=== PATIENT | male | born 1935 | race Caucasian/White ===

== ENCOUNTER 2025-02-03 22:40 | Observation (INO) | payer MEDICARE, OTHER, SELFPAY ==
[2025-02-03] VITALS (10 sets, daily range): BP systolic 114–167; BP diastolic 45–86
[2025-02-03 15:39] LABS: % Basophils 0.7 % (0-2); % Eosinophils 1.3 % (0-6); % Immature Granulocytes 0.4 % (0-0.5); % Lymphocytes 20.1 % (20.5-51.1); % Neutrophils 67.5 % (42.2-75.2); Absolute Basophils 0.1 10^3/uL (0-0.2); Absolute Eosinophils 0.1 10^3/uL (0-0.7); Absolute Lymphocytes 1.4 10^3/uL (1.2-3.4); Absolute Monocytes 0.7 10^3/uL (0.1-0.6); Absolute Neutrophils 4.7 10^3/uL (1.4-6.5); Hematocrit 41.5 % (39.0-52.0); Hemoglobin 13.8 g/dL (13.0-18.0); Mean Corp Hgb Conc. 33.3 g/dL (33.0-37.0); Mean Corpuscular Hgb 30.1 pg (27.0-31.0); Mean Corpuscular Volume 90.6 fL (80.0-94.0); Mean Platelet Volume 10.8 fL (7.4-10.4); Nucleated Red Blood Cells % 0 % (-); Platelet Count 152 10^3/uL (130-400); Red Blood Cell Count 4.58 10^6/uL (4.70-6.10); Red Cell Dist. Width 13.7 % (11.5-14.5); White Blood Cell Count 6.9 10^3/uL (4.8-10.8)
[2025-02-03 16:02] LABS: ALT (SGPT) 20 U/L (0-50); AST (SGOT) 25 U/L (17-59); Alkaline Phosphatase 58 U/L (38-126); Blood Urea Nitrogen 32 mg/dl (9-20); Calcium 9.5 mg/dl (8.4-10.2); Carbon Dioxide 25 mmol/L (22-30); Chloride 102 mmol/L (98-107); Glucose 125 mg/dl (70-99); Potassium 4.6 mmol/L (3.5-5.1); Sodium 136 mmol/L (135-145); Total Bilirubin 0.9 mg/dl (0.2-1.3); eGFR 58.17
--- NOTE | 2025-02-03 16:40 | ED.GENMED ---
History of Present Illness
General
Chief Complaint: Weakness
Time Seen by Provider: 02/03/25 16:13
History of Present Illness
History of Present Illness:
89-year-old male with history of Hodgkin's lymphoma now in remission, hypertension presenting to the emergency room with weakness. Patient states that today he noticed difficulty with walking. He states that at first it was pain in both his legs
and pain in his lower back. However the pain is now resolved and then he was having weakness with walking. At first he says that he was having balance problems and had to have a wider based gait. At this time he denies any pain or numbness
tingling. He does state that he feels overall weak. No saddle anesthesia. No urinary incontinence or retention. No spinal injections. No active malignancy. No falls.
Past History
Past History
ED Past Medical History: Cancer (hodgkins lymphoma), HTN and Hypercholesterolemia
Social History
Tobacco: Non-smoker
Alcohol: None
Personal:
Living: with family
Phy Exam
Physical Exam
Physical Exam:
GENERAL: in no acute distress
HEENT: normocephalic, extraocular movements intact, moist oral mucosa
NECK: normal inspection
Back: No midline spinal tenderness
RESPIRATORY: no respiratory distress, clear to auscultation bilaterally
CARDIOVASCULAR: regular rate and rhythm
ABDOMEN/: soft, non-distended, non-tender to palpation, no rebound or guarding
EXTREMITIES: non-tender, no edema/swelling
NEUROLOGIC: alert and oriented x 3, cranial nerves II-XII intact, right upper extremity strength 5/5, left upper extremity strength 5/5, right lower extremity strength 5/5, left lower extremity strength 5/5, normal sensation to light touch, normal
[id number] and [id number], gait not tested formally
SKIN: warm
Course
Orders/Labs/Results
Orders:
Orders
02/03/25 15:14
ECG [Electrocardiogram (*1)] Urgent
Reason for Study: Bradycardia / Tachycardia
EKG- Treatment ONCE
02/03/25 15:30
Complete Blood Count/With Diff Urgent
Comprehensive Metabolic Panel Urgent
02/03/25 16:30
CT Head W/o Iv Contrast Urgent
Comment:
Reason For Exam: weakness, balance issue
Urinalysis Reflex To Culture Urgent
0.9% Sodium Chloride 1000 ml [Nss] 1,000 ml IV BOLUS
Abnormal Lab Results
02/03/25
15:30
RBC 4.58 L 10^6/uL
(4.70-6.10)
MPV 10.8 H fL
(7.4-10.4)
Absolute Monos (auto) 0.7 H 10^3/uL
(0.1-0.6)
Lymphocytes % 20.1 L %
(20.5-51.1)
Monocytes % 10.0 H %
(1.7-9.3)
BUN 32 H mg/dl
(9-20)
Glucose 125 H mg/dl
(70-99)
02/03/25 15:30
02/03/25 15:30
Vital Signs
Initial and Last Documented VS:
Initial Vital Signs
Temp Pulse Resp BP Pulse Ox
97.7 F 41 20 167/66 98
02/03/25 15:11 02/03/25 15:11 02/03/25 15:11 02/03/25 15:11 02/03/25 15:11
Last Documented Vital Signs
Temp Pulse Resp BP Pulse Ox
97.7 F 76 20 130/51 97
02/03/25 15:11 02/03/25 16:30 02/03/25 16:30 02/03/25 16:19 02/03/25 16:30
MDM/Problems Addressed
Differential Diagnosis Includes:
Patient is a 89-year-old male with history of Hodgkin's lymphoma in remission presenting to the emergency department with weakness of both his legs as well as back pain and balance problems that have since resolved. Vitals are unremarkable and exam
shows no strength or sensory deficits. He is not have any focal neurologic deficits. Differential is broad but consists of TIA given the balance problem versus metabolic derangement versus urine infection. I considered cauda equina given
patient's initial complaint of back pain and weakness however patient with no back pain and no obvious weakness on exam. Considered lytic lesion or infection however no spinal tenderness no obvious rashes. Blood work obtained prior to my
evaluation is unremarkable. Will obtain CT scan of the head and urinalysis. Will give IV fluids.
*Critical Care Note
Total Time (30-74mins, 75-104mins- exclusive of procedures): Not Applicable
Update Note
Update Note:
On reevaluation patient resting comfortably. Patient pending CT scan and urinalysis. Patient signed out to oncoming attending pending with the results. Anticipate admission for further evaluation.
ED Attending Note
-
Portions of this chart may have been created with voice recognition software.� Occasional wrong word or��sound alike� substitutions may have occurred due to the inherent limitations of voice recognition software.
Discharge Plan
Departure
Prescriptions:
No Action
aspirin 81 MG tablet,delayed release (DR/EC)
81 mg PO DAILY
loratadine 10 MG tablet
10 mg PO DAILY
fluticasone propionate 1 SPRAY spray,suspension
1 spray intranasal BID
tamsulosin 0.4 MG capsule
0.4 mg PO DAILY Qty: 10 0RF
furosemide 40 mg tablet
40 mg PO DAILY
latanoprost 0.005 % drops
1 drp BOTH EYES HS
atorvastatin 40 mg tablet
40 mg PO HS
carvedilol 12.5 mg tablet
12.5 mg PO BID
acetaminophen 500 mg Tablet
1,000 mg PO HS
lisinopril 10 mg tablet
10 mg PO DAILY
omeprazole 20 mg capsule,delayed release(DR/EC)
20 mg PO DAILY
finasteride 5 mg tablet
5 mg PO DAILY
Mucinex 1,200 mg Tablet Extended Release 12hr
1,200 mg PO HS
cholecalciferol (vitamin D3) [Vitamin D3] 50 mcg (2,000 unit) Tablet
50 mcg PO DAILY
omega 6-ria-izl-fish oil [Fish Oil] 1,000 mg (120 mg-180 mg) Capsule
3 cap PO DAILY
Glucosamine Chondroitin 550-30-1 mg Capsule
1 cap PO BID
cefdinir 300 mg capsule
300 mg PO Q12H 4 Days Qty: 8 0RF
azithromycin 500 mg tablet
500 mg PO DAILY 2 Days Qty: 2 0RF
Referrals:
Colt Arroyo MD [Family Provider] -
Interventions
Interventions:
*Risk Screen - Suicide Last Done: 02/03/25 15:11
*General Assessment Last Done: 02/03/25 15:11
ED- Cardiac Assessment Last Done: 02/03/25 16:29
ED- Neurological Assessment Last Done: 02/03/25 16:29
ED- Pulmonary Assessment Last Done: 02/03/25 16:29
Discharge Date and Time
Print Language: PARAGUAYAN
[2025-02-03] MEDS: NSS 1000 IV (17:24)
[2025-02-03 19:57] LABS: Urine Albumin 3+ (Neg - Trace); Urine Bilirubin Negative (Negative); Urine Character Clear (Clear); Urine Color Yellow; Urine Glucose Negative (Negative); Urine Ketone Negative (Negative); Urine Leukocyte Negative (Negative); Urine Nitrite Negative (Negative); Urine Occult Blood Negative (Negative); Urine Specific Gravity 1.015 (<1.030); Urine Urobilinogen Negative (Neg - 1+)
[2025-02-03 20:07] LABS: Urine Bacteria Few (Negative); Urine Red Blood Cell 0-2 /HPF (0-2); Urine Squamous Cell 0-2 /LPF (Few); Urine White Cell 0-2 /HPF (0-5)
--- NOTE | 2025-02-03 22:29 | HPS.HSE ---
Family Physician
-
Family Physician: Colt Arroyo MD
Chief Complaint
-
Unsteady gait
History of Present Illness
Patient is an 89y M with PMH significant for HFrEF and hypertension who presents to ED complaining of unsteady gait this AM. Patient states that he developed bilateral ankle pain about 1 week ago or so. This pain then improved and he started to
have bilateral knee pain. He has been applying Voltaren gel with improvement in his symptoms. He has some initial stiffness with ambulation - but notes that he is able to 'walk it off' typically. He denies any fevers, chills, falls / injuries,
etc. This AM, patient states that his pain was fairly mild. He was ambulating at home without difficulty prior to breakfast. When he stood after breakfast, he noted that his legs felt 'like rubber'. He was quite unsteady. He typically ambulates
with no assist device; however, he utilized a walker to go to the [facility]. He was evaluated there and referred to the ED.
No recent medication changes. No recent vaccinations, febrile illness, etc.
Medical History
Past Medical History
Past Medical History: Reports Other
Additional Past Medical History:
Hypertension
HFrEF
BPH
Past Surgical History: Reports Other
Additional Past Surgical History:
Sinus Surgery
Social History
Tobacco: Non-smoker
Alcohol: None
Drug: None
Family History
Family History: Not pertinent
Allergies / Home Medications
Allergies reflects when Allergies were last updated in [facility].
Home Medications with original date entered in [facility]
Allergy/Medication List:
Patient is not able to reconcile his medications from memory.
If medication reconciliation has not been performed, why?: Medication List N/A
Review of Systems
-
History Source: Patient
A 12 point ROS was completed and negative except as noted: Yes
Constitutional: Reports Fatigue; Denies Fever or Chills
Respiratory: Denies Cough or Trouble Breathing
Cardiac: Denies Chest Pain or Palpitations
Abdomen/GI: Denies Abdominal Pain, Nausea, Vomiting, Diarrhea, Bloody Stools or Black Stools
: Denies Dysuria, Frequency or Flank Pain
Musculoskeletal: Reports Joint Pain; Denies Muscle Pain or Edema
Neurological: Reports Weakness; Denies Dizzy or Headache
Psych: Denies Depression or Anxiety
Physical Exam
Vital Signs
Vital Signs
Temp Pulse Resp BP Pulse Ox
97.7 F 72 12 116/86 95
02/03/25 15:11 02/03/25 22:15 02/03/25 22:15 02/03/25 22:00 02/03/25 21:45
Physical Exam
General: Other (89y M in no acute distress.)
HEENT: Moist mucous membranes and PERRLA
Respiratory: Clear; No Wheezes, Rales or Rhonchi
Cardiac: S1/S2, Regular Rhythm and Murmur (III/ TYSON)
GI: Soft, Non Tender, Non Distended and Normal Bowel Sounds
Musculoskeletal: No Clubbing, No Cyanosis, No Edema and Other (No significant joint effusions, increased warmth, erythema, etc.)
Neuro: AO x 3 and Other (Strength seems intact and symmetric in the LEs. Sensation intact.)
Laboratory Results
-
02/03/25 15:30
02/03/25 15:30
Laboratory Results
Total Bilirubin 0.9 mg/dl (0.2-1.3) 02/03/25 15:30
AST 25 U/L (17-59) 02/03/25 15:30
ALT 20 U/L (0-50) 02/03/25 15:30
Alkaline Phosphatase 58 U/L (38-126) 02/03/25 15:30
Impression/Plan
-
A/P: Patient is an 89y M with PMH significant for HFrEF and hypertension who presents to ED complaining of unsteady gait since this AM.
Ambulatory Dysfunction
DJD
- Observe overnight for further evaluation and treatment.
- Patient reports gait dysfunction with new / worsening knee pain over the past week or so.
- Continue pain control with Tylenol and topical NSAIDs.
- PT / OT evaluations.
- No neurosensory deficit on exam. Labs, imaging, etc unremarkable.
- Check inflammatory markers for atypical etiology of arthritis pain.
Chronic HFrEF
Benign Hypertension
- Stable. Needs formal med rec in the AM.
- Continue meds including usual diuretic dose.
- Follow I/Os, daily weights, etc.
- Followed by Cardiology at [facility].
BPH
- Stable. Continue meds.
- Bladder scan protocol.
DVT Prophylaxis: Subcut Heparin
Code Status: DNR
--- NOTE | 2025-02-03 22:40 | ED.GENMED ---
History of Present Illness
General
Chief Complaint: Weakness
Time Seen by Provider: 02/03/25 16:13
History of Present Illness
History of Present Illness:
89-year-old male history of hypertension, Hodgkin's lymphoma currently in remission presenting with difficulty walking. Patient states that normally he is able to ambulate without assistance. Patient states that today he started having back pain
and bilateral lower extremity pain, felt weak in the legs. Patient states that he was able to ambulate but with a walker which is unusual for patient. Patient states that he felt unsteady on his feet but denies any dizziness. Patient denies any
headache, numbness, weakness, tingling or incontinence. Patient denies any other symptoms including chest pain, shortness of breath, or abdominal pain. Patient denies urinary symptoms. Patient states that this is never happened before. Patient
states that leg and back pain have resolved, contributes leg pain to arthritis.
Past History
Past History
ED Past Medical History: Cancer (hodgkins lymphoma), HTN and Hypercholesterolemia
Social History
Tobacco: Non-smoker
Alcohol: None
Personal:
Living: with family
Phy Exam
Physical Exam
Physical Exam:
General: Alert, no acute distress
Head: NCAT
Eyes: clear conjunctiva
Neck: supple
Cardiac: regular rate and rhythm, no murmur
Lungs: clear to auscultation bilaterally. No wheezes, rales, or rhonchi. Speaking full unlabored sentences. No respiratory distress.
Abdomen: soft, nondistended nontender. No rebound or guarding.
MSK: no lower extremity edema bilaterally. No deformity
Skin: warm, dry
Neuro: Alert and oriented x3. 5 out of 5 strength bilateral hip/knee/ankle flexion extension. No saddle paresthesias. Able to stand with a wide-based stance which family states is atypical for him, is able to take a few steps with assistance but
appears unsteady on his feet
Course
Orders/Labs/Results
Orders:
Orders
02/03/25 15:14
ECG [Electrocardiogram (*1)] Urgent
Reason for Study: Bradycardia / Tachycardia
EKG- Treatment ONCE
02/03/25 15:30
Complete Blood Count/With Diff Urgent
Comprehensive Metabolic Panel Urgent
02/03/25 16:30
CT Head W/o Iv Contrast Urgent
Comment:
Reason For Exam: weakness, balance issue
0.9% Sodium Chloride 1000 ml [Nss] 1,000 ml IV BOLUS
02/03/25 19:44
Urinalysis Reflex To Culture Urgent
Date Specimen was Collected: 02/03/25
Time Specimen was Collected: 17:25
Urine Microscopic Reflex Cult Urgent
02/03/25 22:25
Admit/Transfer Patient As Directed
Co-Sign Provider:
Level of Care: Observation services
Assign to:: Medical/Surgical
Physician / Group: [facility]
Diagnosis: Ambulatory Dysfunction
Code Status As Directed
Resuscitation Status: Do not resuscitate
Reached after discussion with pt or family/Healthcare POA: Yes
PRN Pain Medication Management As Directed
May give lesser potent ordered pain med per pt: Yes
preference::
Protocol:: Medication orders for pain may be administered in a
manner that supports deferring to patient preference
when the pt is:
- Requesting an ordered lesser potent pain medication.
Least to most potent pain medications are defined
as: acetaminophen < NSAID < tramadol < opioids
(morphine, oxycodone, hydromorphone).
- Requesting a lesser dose of the same medication IF
ORDERED.
- Requesting a less intrusive route of administration
if both routes are prescribed by the provider (PO <
IV).
02/03/25 22:28
DNR Bracelet Application ONCE
Abnormal Lab Results
02/03/25 02/03/25
15:30 19:44
RBC 4.58 L 10^6/uL
(4.70-6.10)
MPV 10.8 H fL
(7.4-10.4)
Absolute Monos (auto) 0.7 H 10^3/uL
(0.1-0.6)
Lymphocytes % 20.1 L %
(20.5-51.1)
Monocytes % 10.0 H %
(1.7-9.3)
BUN 32 H mg/dl
(9-20)
Glucose 125 H mg/dl
(70-99)
Urine Bacteria (Reflex) Few A
(Negative)
Urine Albumin (Reflex) 3+ A
(Neg - Trace)
02/03/25 15:30
02/03/25 15:30
Vital Signs
Initial and Last Documented VS:
Initial Vital Signs
Temp Pulse Resp BP Pulse Ox
97.7 F 41 20 167/66 98
02/03/25 15:11 02/03/25 15:11 02/03/25 15:11 02/03/25 15:11 02/03/25 15:11
Last Documented Vital Signs
Temp Pulse Resp BP Pulse Ox
97.7 F 72 12 116/86 95
02/03/25 15:11 02/03/25 22:15 02/03/25 22:15 02/03/25 22:00 02/03/25 21:45
MDM/Problems Addressed
MDM/Problems Addressed:
Patient received in signout from previous physician. Workup reviewed, UA negative for UTI. Electrolytes within normal limits. White count, hemoglobin within normal limits. CT head unremarkable. Attempted to ambulate patient but appears unsteady
on his feet, states he typically is able to walk around with no assistance. Pt denies any back pain or extremity pain at this time. Discussed with hospitalist for admission
*Critical Care Note
Total Time (30-74mins, 75-104mins- exclusive of procedures): Not Applicable
ED Attending Note
-
Portions of this chart may have been created with voice recognition software.� Occasional wrong word or��sound alike� substitutions may have occurred due to the inherent limitations of voice recognition software.
Discharge Plan
Departure
Patient Disposition: Admit
Date of Disposition: 02/03/25
Time of Disposition: 21:53
Presentation/result/management discussed w/ accepting MD/DO: Hospitalist
Discharge Problem:
Ambulatory dysfunction
Prescriptions:
No Action
aspirin 81 MG tablet,delayed release (DR/EC)
81 mg PO DAILY
loratadine 10 MG tablet
10 mg PO DAILY
fluticasone propionate 1 SPRAY spray,suspension
1 spray intranasal BID
tamsulosin 0.4 MG capsule
0.4 mg PO DAILY Qty: 10 0RF
furosemide 40 mg tablet
40 mg PO DAILY
latanoprost 0.005 % drops
1 drp BOTH EYES HS
atorvastatin 40 mg tablet
40 mg PO HS
carvedilol 12.5 mg tablet
12.5 mg PO BID
acetaminophen 500 mg Tablet
1,000 mg PO HS
lisinopril 10 mg tablet
10 mg PO DAILY
omeprazole 20 mg capsule,delayed release(DR/EC)
20 mg PO DAILY
finasteride 5 mg tablet
5 mg PO DAILY
Mucinex 1,200 mg Tablet Extended Release 12hr
1,200 mg PO HS
cholecalciferol (vitamin D3) [Vitamin D3] 50 mcg (2,000 unit) Tablet
50 mcg PO DAILY
omega 9-ayl-nxn-fish oil [Fish Oil] 1,000 mg (120 mg-180 mg) Capsule
3 cap PO DAILY
Glucosamine Chondroitin 550-30-1 mg Capsule
1 cap PO BID
cefdinir 300 mg capsule
300 mg PO Q12H 4 Days Qty: 8 0RF
azithromycin 500 mg tablet
500 mg PO DAILY 2 Days Qty: 2 0RF
Referrals:
Colt Arroyo MD [Family Provider] -
Interventions
Interventions:
*Risk Screen - Suicide Last Done: 02/03/25 15:11
*General Assessment Last Done: 02/03/25 15:11
ED- Cardiac Assessment Last Done: 02/03/25 16:29
ED- Neurological Assessment Last Done: 02/03/25 16:29
ED- Pulmonary Assessment Last Done: 02/03/25 16:29
Discharge Date and Time
Print Language: GHANAIAN
[2025-02-04] VITALS (8 sets, daily range): BP systolic 100–141; BP diastolic 41–73; PULSE 61–76; O2SAT 97; BMI 24.5
--- NOTE | 2025-02-04 00:15 | PTCARENOTE ---
Pt from ED A+OX3 VSS. Pt oriented to room and POC. Pt does not know home medications, states spouse will bring list in AM. Care is ongoing.
[2025-02-04 00:35] LABS: Creatine Phosphokinase 49 U/L (55-170)
[2025-02-04 01:44] LABS: Erythrocyte Sed Rate 26 mm/hour (0-20)
--- NOTE | 2025-02-04 07:34 | W.PN.HOSP.TC ---
Addendum entered and electronically signed by Raimundo Aguilar MD 02/04/25 16:02:
B 12 levels added
Addendum entered and electronically signed by Raimundo Aguilar MD 02/04/25 15:54:
Seen earlier , late documentation.
I saw and evaluated the patient. I reviewed the resident�s note and agree with findings and plan as documented in the resident�s note except changes in my documentation
89-year-old male with unsteady gait he developed bilateral ankle pain 1 week ago which improved and then had bilateral knee pain and back pain
CVS: S1-S2 normal
Chest: CTA B/L
Abdomen: Soft, NT , Bowel Sounds Present
Extremities: No edema, Normal pulses
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 Good strength . B/l LE.
# Ambulatory dysfunction with pain when he stands up or walks
Neg orthostatic vital signs
CPK levels normal
PT OT evaluation
# Chronic HFrEF- Continue Lasix, Lisinopril, Coreg
# Hypertension- Continue Lisinopril, Coreg
# Hyperlipidemia- Statin
# Enlarged prostate -continue finasteride and Flomax
# History of Hodgkin's lymphoma-in remission
# GERD/hiatal hernia continue PPI
# Diverticulosis
# DVT prophylaxis
# DNR
D/W and daughter at bed side
Original Note:
Today's Communication/Plan
-
Pt/ot
mri Lumbar
Assessment / Plan
Assessment / Plan
89y M with PMH significant for HFrEF, Hodgkin's lymphoma currently in remission and hypertension presented to ED complaining of unsteady gait.
#Ambulatory Dysfunction
#DJD
#weakness
- Observe overnight for further evaluation and treatment.
- Patient reports gait dysfunction with new / worsening knee pain R>L over the past week or so.
- Continue pain control with Tylenol and topical NSAIDs.
- Head Ct unremarkable
- PT / OT evaluations.
- No neurosensory deficit on exam.
- Labs, imaging, UA unremarkable.
- ESR 26, CK 49
- will get Lumbar MRI- jennifer spinal stenosis with neurogenic claudication
- consider b/l LE doppler if pain worsen; low jennifer of dvt
- neuro consult if mri unremarkable
#Chronic HFrEF
#Benign Hypertension
- Stable. Needs formal med rec; pharmacist to rec around noon today
- Continue meds including usual diuretic dose.
- Follow I/Os, daily weights, etc.
- Followed by Cardiology at [facility].
#BPH
- Stable.
- Continue home meds.
- Bladder scan protocol.
#h/o LBBB
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
LEFT AXIS DEVIATION
NON-SPECIFIC INTRA-VENTRICULAR CONDUCTION BLOCK
CANNOT RULE OUT SEPTAL INFARCT , AGE UNDETERMINED
INFERIOR INFARCT , AGE UNDETERMINED
MARKED T WAVE ABNORMALITY CONSIDER ANTEROLATERAL ISCHEMIA
ABNORMAL ECG
#Hx of Hodgkin's Lymphoma
-in remission
DVT Prophylaxis: Subcut Heparin
Code Status: DNR
Anticipated Discharge: Within 24 hours
Subjective/Interval History
-
Date of Service: February 04, 2025
AFVSS. Patient complaining of weakness and pain in multiple joints including bilateral knees, bilateral ankles and lower back.
Objective Data
-
Vital Signs:
Vital Signs
Temp Pulse Resp BP Pulse Ox
98 F 64 16 141/61 98
02/04/25 00:15 02/04/25 00:15 02/04/25 00:15 02/04/25 00:15 02/04/25 00:25
I&O
02/03/25 02/04/25 02/05/25
05:59 06:59 06:59
Output Total
Balance
Review of Systems
-
History Source: Patient
Constitutional: Reports No Symptoms
EENT: Reports No Symptoms Reported
Cardiac: Reports No Symptoms; Denies Chest Pain
Abdomen/GI: Reports No Symptoms; Denies Abdominal Pain
Genitourinary: Reports No Symptoms
Musculoskeletal: Reports Arthralgias
Neuro: Reports Weakness (Generalized)
Physical Exam
-
General: Well Developed, Well Nourished and No Apparent Distress
HEENT: Normocephalic, Atraumatic and Moist Mucous Membranes
Respiratory: Clear to Auscultation
Cardiac: Regular Rhythm and S1/S2
GI: Soft, Nontender and Nondistended
Musculoskeletal: No Clubbing, No Cyanosis and No Edema
Skin: Warm
Neuro: Awake, Alert, Oriented, No Motor Deficits, Central Nerve's Intact, No Sensory Deficits and Other (diminished LE reflexes); Negative Tremors
Psych: Calm
Data Reviewed
-
CT Scan: Report Reviewed by me
Labs: Labs Reviewed by me, Discussed with Physician and Discussed with Patient
[2025-02-04] MEDS: LASIX 40 MG PO (09:42)
[2025-02-04] MEDS: FLOMAX 0.4 MG PO (09:42)
[2025-02-04] MEDS: TYLENOL 1000 MG PO ×3 (09:42→22:48)
[2025-02-04] MEDS: ZESTRIL 10 MG PO (09:42)
[2025-02-04] MEDS: LOW STRENGTH ASPIRIN 81 MG PO (09:45)
[2025-02-04] MEDS: PROSCAR 5 MG PO (09:45)
[2025-02-04] MEDS: HEPARIN 5000 UNITS SC ×2 (09:45→20:34)
[2025-02-04] MEDS: COREG 12.5 MG PO ×2 (09:46→20:34)
[2025-02-04] MEDS: DICLOFENAC 1% TOPICAL GEL 1 GRAM TOPICAL ×2 (09:46→20:44)
--- NOTE | 2025-02-04 13:35 | CM ---
Initial assessment completed with pt at bedside.
Pt is an 89yr old admitted on OBS for ambulatory dysfunction
Pt lives with his in a 1 level condo with an elevator to their floor.
Pt is indep at baseline and drives.
Pt does not use equipment but does have a w/c, rollator, RW, commode, and shower chair from previous needs.
Pt says that he was receiving PT 1xweekly prior to admission through a private PT agency and has no prior experience with VN/SNF.
Pt denies any falls.
PCP; Colt Arroyo
Pharm; [facility]
PLAN; [facility]
[2025-02-04] MEDS: LIPITOR 40 MG PO (16:58)
[2025-02-04 17:34] LABS: Vitamin B12 372 pg/ml (239-931)
[2025-02-05] MEDS: LASIX 40 MG PO (07:50)
[2025-02-05] MEDS: PROSCAR 5 MG PO (07:50)
[2025-02-05] MEDS: HEPARIN 5000 UNITS SC ×2 (07:50→20:47)
[2025-02-05] MEDS: TYLENOL 1000 MG PO ×3 (07:50→22:01)
[2025-02-05] MEDS: LOW STRENGTH ASPIRIN 81 MG PO (07:50)
[2025-02-05] MEDS: FLOMAX 0.4 MG PO (07:50)
[2025-02-05] MEDS: COREG 12.5 MG PO ×2 (07:51→20:48)
[2025-02-05] MEDS: DICLOFENAC 1% TOPICAL GEL 1 GRAM TOPICAL ×2 (07:51→20:48)
[2025-02-05] MEDS: ZESTRIL 10 MG PO (07:51)
[2025-02-05 07:56] LABS: Hemoglobin 12.2 g/dL (13.0-18.0); Mean Corp Hgb Conc. 33.9 g/dL (33.0-37.0); Mean Corpuscular Hgb 30.3 pg (27.0-31.0); Mean Corpuscular Volume 89.6 fL (80.0-94.0); Mean Platelet Volume 11.2 fL (7.4-10.4); Platelet Count 118 10^3/uL (130-400); Red Blood Cell Count 4.02 10^6/uL (4.70-6.10); Red Cell Dist. Width 13.6 % (11.5-14.5); White Blood Cell Count 4.8 10^3/uL (4.8-10.8)
[2025-02-05 08:12] VITALS: BP 153/62
[2025-02-05 08:23] LABS: Blood Urea Nitrogen 24 mg/dl (9-20); Calcium 8.8 mg/dl (8.4-10.2); Carbon Dioxide 24 mmol/L (22-30); Chloride 106 mmol/L (98-107); Estimated Creatinine Clearance 46 ml/min; Glucose 122 mg/dl (70-99); Potassium 3.8 mmol/L (3.5-5.1); Sodium 136 mmol/L (135-145); eGFR > 60.00
[2025-02-05 08:36] LABS: Glycohemoglobin (HgbA1c) 6.5 % (4.0-5.6)
--- NOTE | 2025-02-05 09:51 | W.PN.HOSP.TC ---
Today's Communication/Plan
-
MRI today pending
Assessment / Plan
Assessment / Plan
89y M with PMH significant for HFrEF, Hodgkin's lymphoma currently in remission and hypertension presented to ED complaining of unsteady gait.
#Ambulatory Dysfunction
#DJD
#weakness
- Patient reports gait dysfunction with new / worsening knee pain R>L over the past week or so.
- Continue pain control with Tylenol and topical NSAIDs.
- Head Ct unremarkable. Labs, UA unremarkable. ESR 26, CK 49.
- PT / OT evaluations.
- will get Lumbar MRI- jennifer spinal stenosis with neurogenic claudication
- consider b/l LE doppler if pain worsen; low jennifer of dvt
- neuro consult if mri unremarkable
#Chronic HFrEF
#Benign Hypertension
- Continue home lasix 40mg daily, lisinopril 10mg daily, carvedilol 12.5 mg BID
- Follow I/Os, daily weights, low sodium diet etc.
- Followed by Cardiology at [facility].
#BPH
- Continue home tamsulosin, finasteride
- Bladder scan protocol.
#h/o LBBB
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
LEFT AXIS DEVIATION
NON-SPECIFIC INTRA-VENTRICULAR CONDUCTION BLOCK
CANNOT RULE OUT SEPTAL INFARCT , AGE UNDETERMINED
INFERIOR INFARCT , AGE UNDETERMINED
MARKED T WAVE ABNORMALITY CONSIDER ANTEROLATERAL ISCHEMIA
ABNORMAL ECG
#Hx of Hodgkin's Lymphoma
-in remission, on IVIG monthly-- next dose due next week.
Code status: DNR
VTE ppx: heparin SC q12h
Diet: Low sodium
Dispo planning: Anticipate SNF per PT/OT evals
Anticipated Discharge: 24 - 48 hours
Subjective/Interval History
-
Date of Service: February 05, 2025
No acute events overnight. Has been out of bed with walker, and still reports his legs feel 'wobbly.' Reports pain in bilateral ankles and knees that is worse with ambulation. Denies dizziness, chest pain, shortness of breath, abdominal pain,
nausea, vomiting, diarrhea, constipation. Tolerating PO diet.
Objective Data
-
Labs:
Laboratory Results
02/05/25
07:12
WBC 4.8
Hgb 12.2 L
Hct 36.0 L
Plt Count 118 L D
Sodium 136
Potassium 3.8
Chloride 106
Carbon Dioxide 24
BUN 24 H
Creatinine 1.0
Glucose 122 H
Calcium 8.8
Vital Signs:
Vital Signs
Temp Pulse Resp BP Pulse Ox
98 F 65 18 153/62 98
02/05/25 08:12 02/05/25 08:12 02/05/25 08:12 02/05/25 08:12 02/05/25 08:12
I&O
02/04/25 02/05/25 02/06/25
06:59 06:59 06:59
Intake Total 690 / 690
Output Total 1025 / 1025
Balance -335 / -335
Review of Systems
-
History Source: Patient
All other systems: Reviewed and negative
Physical Exam
-
General: Well Developed, No Apparent Distress, Comfortable and Conversant
HEENT: Normocephalic and Atraumatic
Respiratory: Clear to Auscultation and Non Labored Respirations; Negative Wheezes or Crackles
Cardiac: Regular Rhythm and Murmur (systolic)
GI: Soft, Nontender, Nondistended and Normal Bowel Sounds
Musculoskeletal: No Edema and Normal Gait & Station (with use of walker)
Skin: Warm and Dry
Neuro: Awake, Alert and Oriented
Psych: Calm and Intact Judgement/Insight
Data Reviewed
-
CT Scan: Report Reviewed by me
Labs: Labs Reviewed by me
[2025-02-05 10:00] VITALS: BMI 24.4
--- NOTE | 2025-02-05 14:32 | W.PN.UPDATE ---
Update Note
Progress Note Update
Seen earlier , late documentation.
I saw and evaluated the patient. I reviewed the resident�s note and agree with findings and plan as documented in the resident�s note except changes in my documentation
89-year-old male with unsteady gait . Says he felt his legs were like rubber. Says slightly better, but feels stiff when he walks
CVS: S1-S2 normal
Chest: CTA B/L
Abdomen: Soft, NT , Bowel Sounds Present
Extremities: No edema, Normal pulses
[employer] OPERATOR: Good strength B/L UE, Decreased reflexes in the legs. Good strength , no sensory loss. B/l LE. NO cogwheeling, Gait short steps
# Ambulatory dysfunction with pain when he stands up or walks
Neg orthostatic vital signs
Mild DJD on the MRI
CPK levels normal
PT OT evaluation
Neuro eval requested..
# Chronic HFrEF- Continue Lasix, Lisinopril, Coreg
# Hypertension- Continue Lisinopril, Coreg
# Hyperlipidemia- Statin
# Enlarged prostate -continue finasteride and Flomax
# History of Hodgkin's lymphoma-in remission, gets IVIG every month, due again next wednesday.
# GERD/hiatal hernia continue PPI
# Diverticulosis
# DVT prophylaxis
# DNR
D/W and daughter at bed side
[2025-02-05 15:55] VITALS: BP 142/55
[2025-02-05] MEDS: LIPITOR 40 MG PO (16:32)
--- NOTE | 2025-02-05 18:10 | CON.NEURO ---
Neuro Assessment/Plan
Assessment
89 year old man with ambulatory dysfunction. overall looks pretty good for 89
Exam with some parkinsonism, consistent with Parkinson's disease, which would explain his imbalance and some of the stiffness though there may be an arthritic component as well given the knee/ankle pain.
spoke with patient re: diagnosis and he is interested in trying sinemet
Plan
Sinemet 25/100 TID before meals
Consultation
Order
Date of Consultation: 02/05/25
Requesting Provider: Raimundo Aguilar
Reason for Consult: ambulatory dysfunction
Subjective/Objective
Subjective Data
Date of Service: February 05, 2025
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 began suddenly while he was making the bed. feels his legs are giving out like rubber, but also stiff; associated with bilat knee and ankle pain. No falls.
On further questioning, over the past few months his voice is getting softer, and his movements are slowing down. handwriting is ok. No visual hallucinations, constipation, change in sense of smell. decreased tasted which he attributes to dental
upper plate.
Objective Data
Vital Signs
Temp Pulse Resp BP Pulse Ox
36.4 C 61 18 142/55 100
02/05/25 15:55 02/05/25 15:55 02/05/25 15:55 02/05/25 15:55 02/05/25 15:55
Lab Results
02/05/25 07:12
02/05/25 07:12
Sodium 136 mmol/L (135-145) 02/05/25 07:12
Potassium 3.8 mmol/L (3.5-5.1) 02/05/25 07:12
BUN 24 mg/dl (9-20) H 02/05/25 07:12
Glucose 122 mg/dl (70-99) H 02/05/25 07:12
Calcium 8.8 mg/dl (8.4-10.2) 02/05/25 07:12
Vitamin B12 372 pg/ml (239-931) 02/04/25 00:03
Patient Allergies
guaifenesin [From Deconex] Allergy (Verified 02/03/25 15:12)
Unknown
phenylephrine [From Deconex] Allergy (Verified 02/03/25 15:12)
Unknown
Physical Exam
-
AAOx3, speech clear, language intact
VFF, EOMI, masked fascies
full strength b/l UE/LE, +cogwheel, lead pipe rigidity
+bradykinesia
reciprocal gait with RW, small steps
Medications
-
Active Medications
Generic Name Dose Route Start Last Admin
Trade Name Freq PRN Reason Stop Dose Admin
Acetaminophen 1,000 mg 02/04/25 08:00 02/05/25 16:32
Acetaminophen 500 Mg Tablet PO 03/04/25 07:59 1,000 mg
TID MAURO Administration
Aspirin 81 mg 02/04/25 08:00 02/05/25 07:50
Aspirin 81 Mg Chewable Tablet PO 03/04/25 07:59 81 mg
DAILY MAURO Administration
Atorvastatin Calcium 40 mg 02/04/25 18:00 02/05/25 16:32
Atorvastatin (Lipitor) 40 Mg Tablet PO 03/04/25 17:59 40 mg
QPM MAURO Administration
Carvedilol 12.5 mg 02/04/25 08:00 02/05/25 07:51
Carvedilol 12.5 Mg Tablet PO 03/04/25 07:59 12.5 mg
BID MAURO Administration
Cyanocobalamin 1,000 mcg 02/06/25 08:00
Cyanocobalamin 1,000 Mcg Tablet PO 03/06/25 07:59
DAILY MAURO
Diclofenac Sodium 1 gram 02/04/25 08:00 02/05/25 07:51
Diclofenac 1% Topical Gel 100 Gram Tube TOPICAL 03/04/25 07:59 1 gram
BID MAURO Administration
Protocol
Finasteride 5 mg 02/04/25 08:00 02/05/25 07:50
Finasteride 5 Mg Tablet PO 03/04/25 07:59 5 mg
DAILY MAURO Administration
Furosemide 40 mg 02/04/25 08:00 02/05/25 07:50
Furosemide 40 Mg Tablet PO 03/04/25 07:59 40 mg
DAILY MAURO Administration
Heparin Sodium 5,000 units 02/04/25 08:00 02/05/25 07:50
Heparin 5,000 Units/Ml 1 Ml Vial SC 03/04/25 07:59 5,000 units
Q12 MAURO Administration
Lisinopril 10 mg 02/04/25 08:00 02/05/25 07:51
Lisinopril 10 Mg Tablet PO 03/04/25 07:59 10 mg
DAILY MAURO Administration
Sodium Chloride 0 flush 02/03/25 23:00
Sodium Chloride 0.9% (Flush) Syringe IV 03/03/25 22:59
PER PROTOCOL MAURO
Tamsulosin HCl 0.4 mg 02/04/25 08:00 02/05/25 07:50
Tamsulosin 0.4 Mg Capsule PO 03/04/25 07:59 0.4 mg
DAILY MAURO Administration
Home Medications
�Medication �Instructions �Recorded
aspirin 81 mg tablet,delayed 81 mg PO DAILY Blood Clot 03/27/12
release Prevention/Tx
loratadine 10 mg tablet 10 mg PO DAILY Allergies 03/27/12
fluticasone propionate 50 2 spray intranasal DAILY Allergies 04/23/15
mcg/actuation nasal
spray,suspension
tamsulosin 0.4 mg capsule 0.4 mg PO DAILY #10 caps 04/23/15
acetaminophen 500 mg tablet 1,000 mg PO NOON Pain 05/01/23
atorvastatin 40 mg tablet 40 mg PO HS High Cholesterol 05/01/23
cholecalciferol (vitamin D3) 50 50 mcg PO DAILY Supplement 05/01/23
mcg (2,000 unit) tablet (Vitamin
D3)
finasteride 5 mg tablet 5 mg PO DAILY Urinary Issue 05/01/23
furosemide 40 mg tablet 40 mg PO DAILY Fluid 05/01/23
Retention/Swelling
latanoprost 0.005 % eye drops 1 drp BOTH EYES HS Eye Condition 05/01/23
omeprazole 20 mg capsule,delayed 20 mg PO DAILY Gastrointestinal 05/01/23
release Issue
Balance Of Nature Fruits 1 cap PO TID 02/04/25
Balance Of Nature Vegetables 1 cap PO TID 02/04/25
carvedilol 25 mg tablet 25 mg PO BID 02/04/25
glucosamine sulf dipot 1 cap PO BID 02/04/25
chlr,msm,chond 550 mg-C 30 mg-ariel
1 mg capsule (Glucosamine
Chondroitin)
ibuprofen 200 mg tablet 400 mg PO BID 02/04/25
lisinopril 20 mg tablet 20 mg PO BID 02/04/25
omega 5-ywa-cdi-fish oil 1,200 mg 3 cap PO DAILY 02/04/25
(144 mg-216 mg) capsule (Fish Oil)
[2025-02-05 23:54] VITALS: BP 118/56
[2025-02-06 06:00] VITALS: BMI 23.3
[2025-02-06 07:30] VITALS: BP 140/55
[2025-02-06] MEDS: HEPARIN 5000 UNITS SC (07:58)
[2025-02-06] MEDS: COREG 12.5 MG PO (07:59)
[2025-02-06] MEDS: LOW STRENGTH ASPIRIN 81 MG PO (07:59)
[2025-02-06] MEDS: TYLENOL 1000 MG PO ×2 (07:59→16:23)
[2025-02-06] MEDS: LASIX 40 MG PO (07:59)
[2025-02-06] MEDS: PROSCAR 5 MG PO (07:59)
[2025-02-06] MEDS: DICLOFENAC 1% TOPICAL GEL 1 GRAM TOPICAL (07:59)
[2025-02-06] MEDS: VITAMIN B-12 1000 MCG PO (07:59)
[2025-02-06] MEDS: FLOMAX 0.4 MG PO (07:59)
[2025-02-06] MEDS: ZESTRIL 10 MG PO (08:00)
[2025-02-06] MEDS: SINEMET 25-100 1 TABLET PO ×3 (08:00→16:22)
[2025-02-06 08:43] LABS: Hematocrit 37.8 % (39.0-52.0); Hemoglobin 12.6 g/dL (13.0-18.0); Mean Corp Hgb Conc. 33.3 g/dL (33.0-37.0); Mean Corpuscular Hgb 29.9 pg (27.0-31.0); Mean Corpuscular Volume 89.6 fL (80.0-94.0); Mean Platelet Volume 11.4 fL (7.4-10.4); Platelet Count 115 10^3/uL (130-400); Red Blood Cell Count 4.22 10^6/uL (4.70-6.10); Red Cell Dist. Width 13.3 % (11.5-14.5); White Blood Cell Count 4.3 10^3/uL (4.8-10.8)
[2025-02-06 11:05] VITALS: BP 135/58; PULSE 58
[2025-02-06 11:10] LABS: Blood Urea Nitrogen 22 mg/dl (9-20); Calcium 9.1 mg/dl (8.4-10.2); Carbon Dioxide 24 mmol/L (22-30); Chloride 102 mmol/L (98-107); Estimated Creatinine Clearance 51 ml/min; Glucose 192 mg/dl (70-99); Potassium 4.2 mmol/L (3.5-5.1); Sodium 134 mmol/L (135-145); eGFR > 60.00
--- NOTE | 2025-02-06 11:14 | W.PN.HOSP.TC ---
Addendum entered and electronically signed by Vanita Hill MD, Resident 02/06/25 19:02:
Returned to bedside this evening to review plan with patient and family ( and daughter on speakerphone per patient request). [place] mild lightheadedness within a few minutes of taking next sinemet dose, and this was transient only lasting a few
minutes before resolving spontaneously. Dr. Padilla also spoke with patient again and given improvement in speech and ambulation today, recommended continuing sinemet if side effects are tolerable. Prescription for month supply sent to pharmacy. Stable
for discharge home with VN, previously discussed with CM. Patient and family understanding and in agreement with plan. Daughter plans to milk pickup truck driver pt from hospital this evening.
Addendum entered and electronically signed by Raimundo Aguilar MD 02/06/25 15:11:
I saw and evaluated the patient. I reviewed the resident�s note and agree with findings and plan as documented in the resident�s note.
Patient was sitting in a chair when I saw him earlier today. and son-in-law were at bedside.
Late documentation.
He took 1 dose of Sinemet this morning and felt slightly dizzy. Was seen by PT OT and ambulated in the millan ways he did well in PT.
thinks that his speech is at baseline and no problems with the speech. She also states that 'who does not have some stiffness at this age?'.
Patient has a human resources trainer who comes to the house every week who commented to the that patient does not have any parkinsonian features. is not sure if they should continue with Sinemet.
We discussed about the rationale behind starting it. I also commented that they could stop it if they did not feel it helped him or if they feel uncomfortable taking it. They have not made a decision..
Will discuss with neurology
And discharge planning-need to discuss with case management.
Original Note:
Today's Communication/Plan
-
Continue carbidopa/levodopa per neurology, reassess ambulatory function with PT/OT. Discharge planning, will discuss with CM.
Assessment / Plan
Assessment / Plan
89y M with [facility] significant for HFrEF, Hodgkin's lymphoma currently in remission and hypertension presented to ED complaining of unsteady gait. Patient reports gait dysfunction with new / worsening knee pain R>L over the past week or so. Currently
observation status in hospital.
#Ambulatory Dysfunction, weakness
#DJD
- Continue pain control with Tylenol and topical NSAIDs.
- Head Ct on admission unremarkable. Labs, UA unremarkable. ESR 26, CK 49.
- Orthostatic VS negative. Drop in systolic BP from supine to sitting noted, though the repeat measurement was normal.
- Lumbar MRI showed at multiple levels there was mild degenerative disc disease, spondylosis, minimal disc bulging, no central canal stenosis; Mild-moderate narrowing of some foramen, though only shows slight compression of exiting nerve root at one
level (L4-L5). No acute findings that new onset ambulatory dysfunction.
- Evaluated by neurology, appreciate recs. Noted some findings consistent with Parkinsons Disease, and started trial of carbidopa/levodopa.
- Continue carbidopa/levodopa per neurology, and reassess ambulatory function. Monitor for ongoing side effects.
- Continue PT/OT. Will reassess for discharge home vs SNF pending PT/OT evaluations. Will discuss with CM.
#Chronic HFrEF
#Benign Hypertension
- Continue home lasix 40mg daily, lisinopril 10mg daily, carvedilol 12.5 mg BID
- Follow I/Os, daily weights, low sodium diet etc.
- Followed by Cardiology at [facility].
#BPH
- Continue home tamsulosin, finasteride
- Bladder scan protocol.
#h/o LBBB
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
LEFT AXIS DEVIATION
NON-SPECIFIC INTRA-VENTRICULAR CONDUCTION BLOCK
CANNOT RULE OUT SEPTAL INFARCT , AGE UNDETERMINED
INFERIOR INFARCT , AGE UNDETERMINED
MARKED T WAVE ABNORMALITY CONSIDER ANTEROLATERAL ISCHEMIA
ABNORMAL ECG
#Hx of Hodgkin's Lymphoma
-in remission, on IVIG monthly-- next dose due next week.
Code status: DNR
VTE ppx: heparin SC q12h
Diet: Low sodium
Dispo planning: Discharge home vs SNF pending PT/OT evals
Anticipated Discharge: Within 24 hours
Subjective/Interval History
-
Date of Service: February 06, 2025
No acute events overnight. Was seen by neurology who started trial of carbidopa/levodopa-- with first dose this AM, patient complains of 'fuzzy' feeling in head like lightheadedness, which resolved spontaneously after few minutes. No other
complaints, ROS negative-- denies chest pain, SOB, abd pain, nausea, vomiting, diarrhea, constipation. Tolerating low sodium diet, feels well hydrated. Ambulating with PT.
Objective Data
-
Labs:
Laboratory Results
02/06/25 02/06/25
08:19 10:33
WBC 4.3 L
Hgb 12.6 L
Hct 37.8 L
Plt Count 115 L
Sodium Cancelled 134 L
Potassium Cancelled 4.2
Chloride Cancelled 102
Carbon Dioxide Cancelled 24
BUN Cancelled 22 H
Creatinine Cancelled 0.9
Glucose Cancelled 192 H
Calcium Cancelled 9.1
Vital Signs:
Vital Signs
Temp Pulse Resp BP Pulse Ox
98.4 F 63 16 140/55 97
02/06/25 07:30 02/06/25 07:30 02/06/25 07:30 02/06/25 07:30 02/06/25 07:30
I&O
02/05/25 02/06/25 02/07/25
06:59 06:59 06:59
Intake Total 690 / 690 1080 / 1080
Output Total 1025 / 1025 525 / 525
Balance -335 / -335 555 / 555
Review of Systems
-
History Source: Patient
All other systems: Reviewed and negative
Physical Exam
-
General: Well Developed, No Apparent Distress, Comfortable and Conversant
HEENT: Normocephalic and Atraumatic
Respiratory: Clear to Auscultation and Non Labored Respirations; Negative Wheezes or Crackles
Cardiac: Regular Rhythm and S1/S2
GI: Soft, Nontender, Nondistended and Normal Bowel Sounds
Musculoskeletal: No Edema
Skin: Warm and Dry
Neuro: Awake, Alert and Oriented
Psych: Calm and Intact Judgement/Insight
Data Reviewed
-
CT Scan: Report Reviewed by me
MRI: Report Reviewed by me
Labs: Labs Reviewed by me
[2025-02-06 15:42] VITALS: BP 145/64
[2025-02-06] MEDS: LIPITOR 40 MG PO (16:22)
--- NOTE | 2025-02-06 16:24 | CM ---
Per physician resident, patient can d/c today w/ home care. [facility] accepted for services. '
CM spoke w/ patient's daughter, Marilyn, to inform of d/c today. Per Marilyn, she does not feel comfortable w/ patient d/c today as there is no support at home. Patient resides w/ but patient takes care of and is limited due to weakness
and not being at his PLOF. Marilyn stated that her [id number] has taken off from work tomorrow to be able to be at patient's home, as well as transport him home tomorrow.
CM offered [facility] van transport home, Marilyn shared she is not comfortable w/ patient going home via van to his who is not in good condition herself. Marilyn asked if physician or physician resident can give her a call regarding patient's dopamine
dose. CM made physician aware of daughter wanting a call and safety concerns if d/c today
Plan: Home w/ [facility]
[2025-02-06 19:40] VITALS: BP 152/68
--- NOTE | 2025-02-06 19:50 | W.PN.NEURO.1 ---
Today's Communication / Plan
-
ok to d/c home
Neuro Assessment/Plan
Assessment
89 year old man with ambulatory dysfunction. overall looks pretty good for 89
Exam with some parkinsonism, consistent with Parkinson's disease, which would explain his imbalance and some of the stiffness though there may be an arthritic component as well given the knee/ankle pain.
spoke with patient re: diagnosis, he is not noticing much difference though exam does appear a little better, particularly his voice
Plan
Sinemet 25/100 TID before meals,
advised trying it a few more days at home
Subjective/Objective
Subjective Data
Date of Service: February 06, 2025
dizziness lasting ~5 mins after taking Sinemet. not noticed much difference.
worked with physical therapy and ambulated well
Objective Data
Vital Signs
Temp Pulse Resp BP Pulse Ox
36.4 C 58 18 152/68 98
02/06/25 19:40 02/06/25 19:40 02/06/25 19:40 02/06/25 19:40 02/06/25 19:40
Lab Results
02/06/25 08:19
02/06/25 10:33
Sodium 134 mmol/L (135-145) L 02/06/25 10:33
Potassium 4.2 mmol/L (3.5-5.1) 02/06/25 10:33
BUN 22 mg/dl (9-20) H 02/06/25 10:33
Glucose 192 mg/dl (70-99) H 02/06/25 10:33
Calcium 9.1 mg/dl (8.4-10.2) 02/06/25 10:33
Vitamin B12 372 pg/ml (239-931) 02/04/25 00:03
Patient Allergies
guaifenesin [From Deconex] Allergy (Verified 02/03/25 15:12)
Unknown
phenylephrine [From Deconex] Allergy (Verified 02/03/25 15:12)
Unknown
Physical Exam
-
AAOx3, speech clear, language intact
VFF, EOMI, masked fascies
full strength b/l UE/LE, +cogwheel, lead pipe rigidity
+bradykinesia
reciprocal gait with RW, small steps
--- NOTE | 2025-02-06 20:14 | W.DCSUMMARY ---
Addendum entered and electronically signed by Raimundo Aguilar MD 02/07/25 11:55:
Read, reviewed, and agree. See same day progress note for additional details. Time spent coordinating care, DC planning, review of DC plan of care with resident, transition of care, review of records in EMR, med rec, consults, notes, d/w
consultants, nursing, family, and CM mins
Original Note:
Discharge Summary
Discharge Data
Date of Admission: 02/03/25
Date of Discharge: 02/06/25
-
Pending Results: No
Hospital Course
Discharging Physician : Dr. Hill/Dr. Aguilar
Disposition : Home with home health
Primary care physician : Ann Miller
Principal Discharge diagnosis : Ambulatory dysfunction, concern for parkinsons disease, degenerative disc disease
Chronic Discharge diagnosis : Osteoarthritis, chronic heart failure reduced ejection fraction, hypertension, benign prostatic hypertrophy, left bundle branch block, history of hodgkins lymphoma, hyperlipidemia, gastroesophageal reflux disease,
hiatal hernia, diverticulosis
Hospital Course : Presented to ED for difficulty with ambulation due to unsteadiness, stiffness. Also reported bilateral ankle and knee pain, as well as back pain. His pain was controlled with tylenol and topical NSAIDs. Head CT and labs on
admission were unremarkable, including urinalysis, ESR, CK. Lumbar MRI revealed chronic degenerative disc disease and minor narrowing of some foramen (results below). Neurology was consulted and started carbidopa/levodopa for symptoms consistent
with parkinsons disease. Neurology and physical therapy both noted improvement in symptoms following day. His other chronic conditions were stable throughout hospitalization and no changes were made. On day of discharge, he was stable. He was
discharged home with home health and physical therapy.
Important imaging findings :
Head CT 02/03/25
FINDINGS:
The ventricles are normal in size, configuration, and position for age. There is no intra- or extra-axial mass, hemorrhage, or fluid collection. No areas of abnormal mass effect or attenuation are noted. There is moderate subcortical, deep, and
periventricular white matter low-attenuation, compatible with changes of chronic small vessel ischemic disease. Severe left maxillary sinus mucosal thickening, partially visualized. No depressed calvarial fracture.
IMPRESSION:
No acute intracranial abnormality noted.
Lumbar spine MRI 02/05/25
FINDINGS: MRI of the lumbar spine is performed, images obtained prior to and following intravenous administration of gadolinium-based contrast agent.
Mild degenerative signal change involving the inferior sacroiliac joints, right slightly greater than left. Minimal dextroconvex scoliosis centered in the upper lumbar spine.
Normal appearance of the lower spinal cord. Conus medullaris appears within normal limits, located at the superior L1 level.
At T12-L1, mild disc desiccation and minimal anterior spondylosis. No evidence of disc protrusion or significant disc bulge. No significant foraminal narrowing.
At L1-2, mild disc desiccation and minimal anterior spondylosis. No evidence of disc protrusion or significant disc bulge. No significant foraminal narrowing.
At L2-3, mild degenerative disc disease with anterior spondylosis and mild bilateral lateral spondylosis. No evidence of disc protrusion or significant disc bulge. Mild facet degenerative change minimally compressing the posterolateral aspect of the
thecal sac. There is no significant overall central canal stenosis or lateral recess stenosis. The neural foramina are not significantly narrowed bilaterally.
At L3-4, mild degenerative disc disease including anterior spondylosis. Mild broad-based posterior disc bulge with mild bilateral facet degenerative change and hypertrophy ligamentum flavum. There is mild trefoil compression of the thecal sac, with
no significant overall central canal stenosis or lateral recess stenosis. The neural foramina are minimally narrowed bilaterally with no evidence for compression of the exiting nerve roots.
At L4-5, mild degenerative disc disease with anterior spondylosis and mild bilateral lateral spondylosis. Minimal broad-based posterior disc bulge with mild facet degenerative change and hypertrophy ligamentum flavum. Mild trefoil compression of the
thecal sac. No significant overall central canal stenosis or lateral recess stenosis. The left foramen is mildly to moderately narrowed, and likely slightly compresses the peripheral margin of the exiting nerve root. The right foramen is mildly
narrowed, probably not significantly compressing the exiting nerve root.
At L5-S1, mild degenerative disc disease with anterior spondylosis. Minimal posterior disc bulge with mild bilateral facet degenerative change. Minimal compression of the anterior thecal sac. No significant overall central canal stenosis or lateral
recess stenosis. The left foramen is minimally narrowed. The right foramen is also minimally narrowed.
Evidence for atherosclerotic disease of the abdominal aorta with no significant dilation. No gross evidence for pelvicalyceal dilation of either kidney.
Marrow signal intensity appears within normal limits. There is no evidence for fracture and no evidence for neoplastic disease.
No focal area of abnormal enhancement is identified.
IMPRESSION: No evidence for fracture. There is no significant marrow signal intensity abnormality, with no findings to suggest neoplastic disease of the marrow.
Mild degenerative changes of the lumbar spine, especially given the patient's age of 89 years. See above narrative for detailed findings at each level.
Discharge Plan
-
Patient Disposition: Home with Home Care
Discharge Diagnosis/Procedures: Ambulatory dysfunction
Concern for Parkinsons Disease
Chronic heart failure with reduced ejection fraction
Hypertension
History of Hodgkins lymphoma in remission
Condition: Good
Diet: 2 Gram Sodium
Activity: With assistance, As tolerated and With Walker
Driving Restrictions: No driving
Bathing Restrictions: OK to Shower
Other Services: VN, PT and OT
Specialty Instructions: Weigh Daily- Call MD for wt gain/loss 3 lbs overnight/5 lbs in 1 week
Instructions: Preventing falls in adults, Low-sodium diet, BLOOD PRESSURE, *PCP/Other Freight Adjuster Heart Failure Instructions
Referrals:
Matthew Padilla MD [Active] - As needed (Call the Neurology office to schedule follow up appointment as needed)
Colt Arroyo MD [Family Provider] - in less than 1 week (Call your Primary Care Provider to schedule follow up appointment within 1 week of hospital discharge.)
Additional Discharge Medication Instructions: New medications:
- Take 1 tablet of carbidopa-levodopa before meals, three times per day. Call your Primary Care Provider or Neurologist if you have questions about this medication or need refills.
Continue taking your other medications as you were before coming to the hospital.
You can continue to use tylenol and topical gels to help with your knee pain.
Prescriptions:
New
carbidopa-levodopa 25-100 mg Tablet
1 tab PO AC 30 Days Qty: 90 0RF
Continued
aspirin 81 MG tablet,delayed release (DR/EC)
81 mg PO DAILY
loratadine 10 MG tablet
10 mg PO DAILY
fluticasone propionate 1 SPRAY spray,suspension
2 spray intranasal DAILY
furosemide 40 mg tablet
40 mg PO DAILY
latanoprost 0.005 % drops
1 drp BOTH EYES HS
atorvastatin 40 mg tablet
40 mg PO HS
acetaminophen 500 mg Tablet
1,000 mg PO NOON
omeprazole 20 mg capsule,delayed release(DR/EC)
20 mg PO DAILY
finasteride 5 mg tablet
5 mg PO DAILY
cholecalciferol (vitamin D3) [Vitamin D3] 50 mcg (2,000 unit) Tablet
50 mcg PO DAILY
carvedilol 25 mg Tablet
25 mg PO BID Qty: 0 0RF
lisinopril 20 mg Tablet
20 mg PO BID Qty: 0 0RF
tamsulosin 0.4 MG capsule
0.4 mg PO DAILY Qty: 10 0RF
ibuprofen 200 mg Tablet
400 mg PO BID Qty: 0 0RF
omega 0-dmh-ixe-fish oil [Fish Oil] 1,200 (144-216) mg Capsule
3 cap PO DAILY Qty: 0 0RF
Glucosamine Chondroitin 550-30-1 mg Capsule
1 cap PO BID Qty: 0 0RF
Balance Of Nature Fruits
1 cap PO TID Qty: 0 0RF
Balance Of Nature Vegetables
1 cap PO TID Qty: 0 0RF
Discharge Orders:
Discharge Patient (As Directed); Ordered 02/06/25
Ordered By: Vanita Hill
Discharge Date and Time
Discharge Date/Time: 02/06/25 19:46
Print Language: DJIBOUTIAN
== END 2025-02-06 19:46 | disposition home health service (06) ==
LOC: 4 EAST ACU 22:40
PROVIDERS: Emergency Medicine; Student in an Organized Health Care Education/Training Program; ADMITTING PHYSICIAN Hospitalist; ATTENDING PHYSICIAN Hospitalist; CONSULT PHYSICIAN Psychiatry & Neurology Clinical Neurophysiology; EMERGENCY PHYSICIAN Emergency Medicine; FAMILY PHYSICIAN Family Medicine
DX: M19.90 Unspecified osteoarthritis, unspecified site (principal); R53.1 Weakness; Z85.71 Personal history of Hodgkin lymphoma; I11.0 Hypertensive heart disease with heart failure; R00.1 Bradycardia, unspecified; R00.0 Tachycardia, unspecified; M25.561 Pain in right knee; M25.562 Pain in left knee; M25.571 Pain in right ankle and joints of right foot; M25.572 Pain in left ankle and joints of left foot; R26.2 Difficulty in walking, not elsewhere classified; I50.22 Chronic systolic (congestive) heart failure; N40.0 Benign prostatic hyperplasia without lower urinary tract symptoms; Z66 Do not resuscitate; E78.00 Pure hypercholesterolemia, unspecified; K21.9 Gastro-esophageal reflux disease without esophagitis; K44.9 Diaphragmatic hernia without obstruction or gangrene; K57.90 Diverticulosis of intestine, part unspecified, without perforation or abscess without bleeding; R42 Dizziness and giddiness; G20.A1 Parkinson's disease without dyskinesia, without mention of fluctuations; M47.816 Spondylosis without myelopathy or radiculopathy, lumbar region; I44.0 Atrioventricular block, first degree; I44.7 Left bundle-branch block, unspecified; M48.062 Spinal stenosis, lumbar region with neurogenic claudication; M51.369 Other intervertebral disc degeneration, lumbar region without mention of lumbar back pain or lower extremity pain; Z01.810 Encounter for preprocedural cardiovascular examination; Z79.899 Other long term (current) drug therapy
CPT/HCPCS: 70450; 72158; 80048; 80053; 81003; 81015; 82550; 82607; 83036; 85025; 85027; 85652; 93005; 96360; 97162; 97166; 97530; 99285; A9575; G0378

== ENCOUNTER 2025-05-30 04:04 | Inpatient (IN) | payer MEDICARE, OTHER, SELFPAY ==
[2025-05-29 23:41] VITALS: BMI 26.1
[2025-05-30] VITALS (10 sets, daily range): BP systolic 102–139; BP diastolic 45–63; PULSE 76; O2SAT 97; BMI 25.6
[2025-05-30 00:24] LABS: ALT (SGPT) 17 U/L (0-50); AST (SGOT) 27 U/L (17-59); Albumin 4.3 g/dl (3.5-5.0); Alkaline Phosphatase 55 U/L (38-126); Blood Urea Nitrogen 31 mg/dl (9-20); COVID-19 Antigen Positive (Negative); Calcium 9.1 mg/dl (8.4-10.2); Carbon Dioxide 18 mmol/L (22-30); Chloride 108 mmol/L (98-107); Estimated Creatinine Clearance 42 ml/min; Glucose 182 mg/dl (70-99); Potassium 3.6 mmol/L (3.5-5.1); Sodium 139 mmol/L (135-145); Total Protein 6.7 g/dl (6.3-8.2); eGFR > 60.00
[2025-05-30] MEDS: NSS 1000 IV ×3 (00:30→17:30)
[2025-05-30 00:38] LABS: Hematocrit 38.0 % (39.0-52.0); Hemoglobin 12.6 g/dL (13.0-18.0); Mean Corp Hgb Conc. 33.2 g/dL (33.0-37.0); Mean Corpuscular Volume 90.5 fL (80.0-94.0); Nucleated Red Blood Cells % 0 % (-); Platelet Count 146 10^3/uL (130-400); Red Cell Dist. Width 13.6 % (11.5-14.5)
--- NOTE | 2025-05-30 01:34 | ED.GENMED ---
History of Present Illness
General
Chief Complaint: Weakness
Source: patient and ambulance crew
Exam Limitations: clinical condition
Time Seen by Provider: 05/30/25 00:03
Nursing documentation reviewed up to this point in time: agreed with
History of Present Illness
History of Present Illness:
Note:
CHIEF COMPLAINT(S)
Weakness and inability to function, with a history of recent falls.
HISTORY OF PRESENT ILLNESS
The patient is an 89-year-old male with a confirmed diagnosis of COVID-19, presenting with significant weakness and an inability to function effectively. He reports feeling weak since Wednesday and has experienced difficulties in ambulation and getting
out of bed. The patient mentions multiple falls; specifically, he was unable to get into bed and subsequently fell to the floor. [facility] and does not live in a halfway. The patient denies chest pain,
shortness of breath, abdominal pain, leg swelling, or headache.
PHYSICAL EXAM
- Respiratory: Room air, no shortness of breath.
- Cardiovascular: Blood pressure recorded at 129/52 mmHg.
- General: Vital signs reviewed, patient appears weak.
PROBLEM LIST
Acute:
- COVID-19 infection
- Significant weakness
- Recent falls
PLAN
The patient will be admitted for further management and monitoring of his condition. Given that he lives alone and is weak and nearly fell.
DIFFERENTIAL DIAGNOSIS
The Differential Diagnosis includes, in no particular order and is not limited to:
COVID-19 related weakness
Dehydration
Electrolyte imbalance
Medication side effects
Acute infection other than COVID-19
Anemia
Postural hypotension
Orthostatic hypotension
Disposition:
SUMMARY OF ENCOUNTER
The patient, an 89-year-old male with a recent COVID-19 diagnosis, presented to the emergency department with significant weakness and a recent fall. He was unable to get into bed and lowered himself to the ground to prevent a fall. Emergency
services were called. He lives at home with his , who also has COVID-19 and is unable to care for him currently. The patient requires hospitalization for continued fluid hydration and observation due to weakness associated with the COVID-19
infection.
DISPOSITION
Admit
ASSESSMENT
The patient presents with significant weakness consistent with COVID-19 infection, exacerbated by his recent falls and inability to care for himself. Given his age and the potential risks associated with dehydration and further falls, inpatient
management is necessary.
PLAN
The patient will be admitted for further management, including continued monitoring and fluid hydration.
DIAGNOSIS
COVID-19 infection (U07.1)
Weakness (R53.1)
Fall (W19.XXXA)
Past History
Past History
ED Past Medical History: Cancer (hodgkins lymphoma), HTN and Hypercholesterolemia
Social History
Tobacco: Non-smoker
Alcohol: None
Personal:
Living: with family
Review of Systems
Review of Systems
Allergies reviewed?: Yes
All Other Systems: ROS reviewed and negative except as documented in HPI and ROS
Constitutional: Reports fatigue and sleep disturbance
Respiratory: Reports no symptoms
Cardiac: Reports no symptoms
ABD/GI: Reports no symptoms
: Reports no symptoms
Musculoskeletal: Reports no symptoms
Skin: Reports no symptoms
Neurological: Reports weakness
Hematologic/Lymphatic: Reports no symptoms
Psychiatric: Reports anxiety
Phy Exam
General Physical Exam
General Presentation: moderate distress
General age: appears stated age
General Skin: warm and pale
General Habitus: elderly and frail
General Mental: alert
General Hydration: dry mucous membranes
Cardiovascular Exam
Cardiovascular Exam: tachycardia
Course
Orders/Labs/Results
Orders:
Orders
05/29/25 23:51
COVID-19 Antigen Urgent
Source: Nasal Swab
Complete Blood Count/With Diff Urgent
Comprehensive Metabolic Panel Urgent
05/30/25 00:22
0.9% Sodium Chloride 1000 ml [Nss] 1,000 ml IV BOLUS
05/30/25 00:31
Lactic Acid Q4H
Comment: CANCEL 2nd LACTIC ACID IF 1st LACTIC ACID IS LESS THAN 2
Abnormal Lab Results
05/30/25
00:03
RBC 4.20 L 10^6/uL
(4.70-6.10)
Hgb 12.6 L g/dL
(13.0-18.0)
Hct 38.0 L %
(39.0-52.0)
MPV 11.2 H fL
(7.4-10.4)
Absolute Neuts (auto) 7.7 H 10^3/uL
(1.4-6.5)
Absolute Lymphs (auto) 0.7 L 10^3/uL
(1.2-3.4)
Neutrophils % 85.1 H %
(42.2-75.2)
Lymphocytes % 7.5 L %
(20.5-51.1)
Chloride 108 H mmol/L
(98-107)
Carbon Dioxide 18 L mmol/L
(22-30)
BUN 31 H mg/dl
(9-20)
Glucose 182 H mg/dl
(70-99)
SARS-CoV-2 Antigen Positive A
(Negative)
05/30/25 00:03
05/30/25 00:03
Vital Signs
Initial and Last Documented VS:
Initial Vital Signs
Pulse
83
05/29/25 23:41
Last Documented Vital Signs
Pulse Resp BP Pulse Ox
81 29 132/45 94
05/30/25 01:20 05/30/25 01:20 05/30/25 01:20 05/29/25 23:52
*Pulse Oximetry
SaO2: 94
Nasal Cannula flow liters per minute: 2
Oxygen Mode of Delivery: Room air
Patient hypoxic: yes (Initially patient was 89% on room air. At rest he became 94% on room air)
*Critical Care Note
Total Time (30-74mins, 75-104mins- exclusive of procedures): Not Applicable
ED Attending Note
-
Portions of this chart may have been created with voice recognition software.� Occasional wrong word or��sound alike� substitutions may have occurred due to the inherent limitations of voice recognition software.
Discharge Plan
Departure
Patient Disposition: Admit
Date of Disposition: 05/30/25
Time of Disposition: 01:36
Admit to: Telemetry
Presentation/result/management discussed w/ accepting MD/DO: Hospitalist
Covid-19: Confirmed COVID-19
Discharge Problem:
COVID-19, Acute dehydration, Weakness, Falls
Prescriptions:
No Action
aspirin 81 MG tablet,delayed release (DR/EC)
81 mg PO DAILY
loratadine 10 MG tablet
10 mg PO DAILY
fluticasone propionate 1 SPRAY spray,suspension
2 spray intranasal DAILY
furosemide 40 mg tablet
40 mg PO DAILY
latanoprost 0.005 % drops
1 drp BOTH EYES HS
atorvastatin 40 mg tablet
40 mg PO HS
acetaminophen 500 mg Tablet
1,000 mg PO NOON
omeprazole 20 mg capsule,delayed release(DR/EC)
20 mg PO DAILY
finasteride 5 mg tablet
5 mg PO DAILY
cholecalciferol (vitamin D3) [Vitamin D3] 50 mcg (2,000 unit) Tablet
50 mcg PO DAILY
carbidopa-levodopa 25-100 mg Tablet
1 tab PO AC 30 Days Qty: 90 0RF
carvedilol 25 mg Tablet
25 mg PO BID Qty: 0 0RF
lisinopril 20 mg Tablet
20 mg PO BID Qty: 0 0RF
tamsulosin 0.4 MG capsule
0.4 mg PO DAILY Qty: 10 0RF
ibuprofen 200 mg Tablet
400 mg PO BID Qty: 0 0RF
omega 7-aeg-jdk-fish oil [Fish Oil] 1,200 (144-216) mg Capsule
3 cap PO DAILY Qty: 0 0RF
Glucosamine Chondroitin 550-30-1 mg Capsule
1 cap PO BID Qty: 0 0RF
Balance Of Nature Fruits
1 cap PO TID Qty: 0 0RF
Balance Of Nature Vegetables
1 cap PO TID Qty: 0 0RF
Referrals:
UNKNOWN - PT DOES,NOT KNOW [Family Provider]
Interventions
Interventions:
*Risk Screen - Suicide Last Done: 05/29/25 23:48
*General Assessment Last Done: 05/29/25 23:46
*Neglect/Abuse Screening Last Done: 05/29/25 23:48
*ED- Fall Risk Assessment Last Done: 05/29/25 23:46
*ED COVID-19 Vaccine History Last Done: 05/29/25 23:46
ED- Cardiac Assessment Last Done: 05/30/25 00:23
ED- Neurological Assessment Last Done: 05/30/25 00:23
ED- Pulmonary Assessment Last Done: 05/30/25 00:23
Discharge Date and Time
Print Language: SINHALA
[2025-05-30] MEDS: TYLENOL 650 MG PO (02:56)
--- NOTE | 2025-05-30 03:43 | HPS.HSE ---
Family Physician
-
Family Physician: NOT KNOW UNKNOWN - PT DOES
Chief Complaint
-
Weakness
History of Present Illness
Patient is an 89y M with PMH significant for hypertension, CHF and ? Parkinsonism who presents to ED complaining of weakness, falls and cough. His was recently admitted to for COVID-19 infection. Patient reportedly with multiple falls
in the past few days (though he denies this to me). He complains of cough, malaise, poor PO intake, etc. He states that he has been weak and dizzy. He denies any pain at present. Denies N/V/D.
Patient was last admitted in January of this year due to weakness / falls. He was started on Sinemet at that time for suspected Parkinsonism. He states that he took this for about a week and then discontinued it.
Medical History
Past Medical History
Past Medical History: Reports Other
Additional Past Medical History:
Hypertension
HFrEF
BPH
? Parkinson's Disease
Past Surgical History: Reports Other
Additional Past Surgical History:
Sinus Surgery
Social History
Tobacco: Non-smoker
Alcohol: None
Drug: None
Family History
Family History: Not pertinent
Allergies / Home Medications
Allergies reflects when Allergies were last updated in [facility].
Home Medications with original date entered in [facility]
Allergy/Medication List:
Allergies
Allergy/AdvReac Type Severity Reaction Status Date / Time
guaifenesin (From Deconex) Allergy Unknown Verified 02/03/25 15:12
phenylephrine (From Deconex) Allergy Unknown Verified 02/03/25 15:12
Home Medications
aspirin 81 mg tablet,delayed release 81 mg PO DAILY Blood Clot Prevention/Tx 03/27/12
loratadine 10 mg tablet 10 mg PO DAILY Allergies 03/27/12
fluticasone propionate 50 mcg/actuation nasal spray,suspension 2 spray intranasal DAILY Allergies 04/23/15
acetaminophen 500 mg tablet 1,000 mg PO NOON Pain 05/01/23
atorvastatin 40 mg tablet 40 mg PO HS High Cholesterol 05/01/23
cholecalciferol (vitamin D3) 50 mcg (2,000 unit) tablet (Vitamin D3) 50 mcg PO DAILY Supplement 05/01/23
finasteride 5 mg tablet 5 mg PO DAILY Urinary Issue 05/01/23
furosemide 40 mg tablet 40 mg PO DAILY Fluid Retention/Swelling 05/01/23
latanoprost 0.005 % eye drops 1 drp BOTH EYES HS Eye Condition 05/01/23
omeprazole 20 mg capsule,delayed release 20 mg PO DAILY Gastrointestinal Issue 05/01/23
Balance Of Nature Fruits 1 cap PO TID Supplement ##0 02/06/25
Balance Of Nature Vegetables 1 cap PO TID Supplement ##0 02/06/25
carvedilol 25 mg tablet 25 mg PO BID Heart disease/condition #0 tabs 02/06/25
glucosamine sulf dipot chlr,msm,chond 550 mg-C 30 mg-ariel 1 mg capsule (Glucosamine Chondroitin) 1 cap PO BID Supplement #0 caps 02/06/25
ibuprofen 200 mg tablet 400 mg (2 x 200 mg) PO BID Pain #0 tabs 02/06/25
lisinopril 20 mg tablet 20 mg PO BID Blood pressure #0 tabs 02/06/25
omega 8-wjo-kzl-fish oil 1,200 mg (144 mg-216 mg) capsule (Fish Oil) 3 cap PO DAILY Supplement #0 caps 02/06/25
tamsulosin 0.4 mg capsule 0.4 mg PO DAILY Urinary issue #10 caps 02/06/25
Review of Systems
-
History Source: Patient
A 12 point ROS was completed and negative except as noted: Yes
Constitutional: Reports Fatigue; Denies Fever or Chills
EENT: Denies Sore Throat
Respiratory: Reports Cough; Denies Trouble Breathing
Cardiac: Denies Chest Pain or Palpitations
Abdomen/GI: Denies Abdominal Pain, Nausea, Vomiting or Diarrhea
: Denies Dysuria, Frequency or Flank Pain
Musculoskeletal: Denies Joint Pain or Edema
Neurological: Reports Dizzy and Weakness; Denies Headache
Psych: Denies Depression or Anxiety
Physical Exam
Vital Signs
Vital Signs
Temp Pulse Resp BP Pulse Ox
100.1 F 81 29 132/45 94
05/30/25 02:34 05/30/25 01:20 05/30/25 01:20 05/30/25 01:20 05/30/25 01:38
Physical Exam
General: Other (Frail appearing 89y M in no acute distress.)
HEENT: Other (Dry MM. Neck supple.)
Respiratory: Other (Few scattered rales. No wheezes / rhonchi.)
Cardiac: S1/S2, Regular Rhythm and Murmur (III/ TYSON)
GI: Soft, Non Tender, Non Distended and Normal Bowel Sounds
Musculoskeletal: No Clubbing, No Cyanosis and No Edema
Neuro: AO x 3
Laboratory Results
-
05/30/25 00:03
05/30/25 00:03
Laboratory Results
Lactic Acid Cancelled 05/30/25 04:30
Total Bilirubin 1.2 mg/dl (0.2-1.3) 05/30/25 00:03
AST 27 U/L (17-59) 05/30/25 00:03
ALT 17 U/L (0-50) 05/30/25 00:03
Alkaline Phosphatase 55 U/L (38-126) 05/30/25 00:03
Impression/Plan
-
A/P: Patient is an 89y M with PMH significant for hypertension and CHF who presents to ED complaining of weakness and unsteady gait with recent diagnosis of COVID.
COVID-19 Infection
Acute Hypoxemic Respiratory Insufficiency secondary to the above
- Admit for further evaluation and treatment.
- Positive known sick contacts. Cough. SpO2 in the ED < 90% on room air / requiring supplemental O2.
- Begin daily dexamethasone for now.
- Follow proper precautions.
- Follow for clinical improvement.
- Consider Remdesivir, etc if persistent / worsening hypoxemia, etc.
Ambulatory Dysfunction
- Likely exacerbated by acute illness, but ? underlying Parkinsonism as previously suspected.
- Patient not interested in repeat trial of Sinemet.
- Treat acute process as noted above.
- PT eval / supportive care.
- Monitor for any improvement.
Benign Hypertension
- Stable. Continue carvedilol with holding parameters.
- Hold lisinopril acutely.
- Adjust regimen as needed.
Chronic HFrEF
- Stable. Patient does not appear volume overloaded - likely somewhat volume depleted.
- Hold Lasix for now.
- Gentle IVFs overnight.
- Follow I/Os, daily weights, etc.
BPH
- Stable. Continue finasteride. Hold tamsulosin given dizziness.
- Bladder scan protocol.
Hodgkin's Lymphoma in remission
- On monthly IVIG infusions.
DVT Prophylaxis: Lovenox
Code Status: DNR
--- NOTE | 2025-05-30 05:58 | PTCARENOTE ---
Pt received from ED via stretcher. Pulled over to bed x3. AAOx2 (time) forgetful, particulary to details leading to admission. Oriented to surroundings and plan of care discussed. Admission and assessment completed. Protective foams placed to
sacrum and bilateral heels, heels floated on pillow. Voided in urinal. Offers no complaints. Call melendez w/in [facility]. Bed alarm active for safety.
[2025-05-30 08:13] LABS: Hematocrit 32.8 % (39.0-52.0); Hemoglobin 10.9 g/dL (13.0-18.0); Mean Corp Hgb Conc. 33.2 g/dL (33.0-37.0); Mean Corpuscular Volume 91.4 fL (80.0-94.0); Platelet Count 126 10^3/uL (130-400); Red Cell Dist. Width 13.8 % (11.5-14.5)
[2025-05-30 08:33] LABS: Blood Urea Nitrogen 30 mg/dl (9-20); Calcium 8.5 mg/dl (8.4-10.2); Carbon Dioxide 21 mmol/L (22-30); Chloride 111 mmol/L (98-107); Estimated Creatinine Clearance 37 ml/min; Glucose 132 mg/dl (70-99); Potassium 3.7 mmol/L (3.5-5.1); Sodium 139 mmol/L (135-145); eGFR 58.17
[2025-05-30] MEDS: COREG 25 MG PO ×2 (09:37→20:12)
[2025-05-30] MEDS: DECADRON 6 MG PO (09:38)
[2025-05-30] MEDS: PROTONIX 40 MG PO (09:38)
[2025-05-30] MEDS: PROSCAR 5 MG PO (09:38)
[2025-05-30] MEDS: ASPIR LOW (ENTERIC COATED) 81 MG PO (09:38)
--- NOTE | 2025-05-30 10:36 | W.PN.UPDATE ---
Update Note
Progress Note Update
Seen and examined independent of overnight physician. Patient states of severe cough. State of weakness at home. States was discharged in the hospital who also was admitted for COVID infection
General: Other (Frail appearing 89y M in no acute distress.)
HEENT: Other (Dry MM. Neck supple.)
Respiratory: Other (Few scattered rales. No wheezes / rhonchi.)
Cardiac: S1/S2, Regular Rhythm and Murmur (III/ TYSON)
GI: Soft, Non Tender, Non Distended and Normal Bowel Sounds
Musculoskeletal: No Clubbing, No Cyanosis and No Edema
Neuro: AO x 3
A/P: Patient is an 89y M with PMH significant for hypertension and CHF who presents to ED complaining of weakness and unsteady gait with recent diagnosis of COVID.
COVID-19 Infection
Acute Hypoxemic Respiratory Insufficiency secondary to the above
- Admit for further evaluation and treatment.
- Positive known sick contacts. Cough. SpO2 in the ED < 90% on room air / requiring supplemental O2.
- Begin daily dexamethasone for now.
- Follow proper precautions.
- Follow for clinical improvement. Anticough meds
- Chest x-ray noted. Incentive spirometry added.
Ambulatory Dysfunction
- Likely exacerbated by acute illness, but ? underlying Parkinsonism as previously suspected.
- Patient not interested in repeat trial of Sinemet.
- Treat acute process as noted above.
- PT eval / supportive care.
- Monitor for any improvement.
Benign Hypertension
- Stable. Continue carvedilol with holding parameters.
- Hold lisinopril acutely.
- Adjust regimen as needed.
Chronic HFrEF
- Stable. Patient does not appear volume overloaded - likely somewhat volume depleted.
- Restart Lasix probably by tomorrow. No prior echo results
-Stop IV fluids later today
- Follow I/Os, daily weights, etc.
BPH
- Stable. Continue finasteride and Flomax
- Bladder scan protocol.
Hodgkin's Lymphoma in remission
- On monthly IVIG infusions.
DVT Prophylaxis: Lovenox
Code Status: DNR
[2025-05-30] MEDS: TYLENOL 1000 MG PO (11:22)
[2025-05-30] MEDS: TESSALON PERLES 200 MG PO ×3 (11:22→21:23)
--- NOTE | 2025-05-30 15:21 | CM ---
Reviewed the chart notes and spoke with the patient at the bedside. Patient resides with spouse in a second floor condo with elevator access. Patient reports wheelchair, rollator, rolling walker, bsc, and shower chair. Patient has had [facility] VN in
past. Patient on supplement O2. CM continues to be available to patient/family and is monitoring medical plan for needs at discharge.
Plan: Discharge plans will depend on the patient's progress.
[2025-05-30] MEDS: LOVENOX 40 MG SC (17:28)
[2025-05-30] MEDS: XALATAN OPHTHALMIC SOLUTION 1 DROP BOTH EYES (21:23)
[2025-05-30] MEDS: LIPITOR 40 MG PO (21:23)
[2025-05-31 06:00] VITALS: BMI 26.1
[2025-05-31 06:48] LABS: Hematocrit 32.6 % (39.0-52.0); Hemoglobin 11.4 g/dL (13.0-18.0); Mean Corp Hgb Conc. 35.0 g/dL (33.0-37.0); Mean Corpuscular Volume 89.6 fL (80.0-94.0); Nucleated Red Blood Cells % 0 % (-); Platelet Count 123 10^3/uL (130-400); Red Cell Dist. Width 13.5 % (11.5-14.5)
[2025-05-31 07:00] VITALS: BP 136/74
[2025-05-31 07:22] LABS: Blood Urea Nitrogen 22 mg/dl (9-20); Calcium 8.6 mg/dl (8.4-10.2); Carbon Dioxide 20 mmol/L (22-30); Chloride 111 mmol/L (98-107); Estimated Creatinine Clearance 44 ml/min; Glucose 152 mg/dl (70-99); Potassium 4.1 mmol/L (3.5-5.1); Sodium 140 mmol/L (135-145); eGFR > 60.00
[2025-05-31] MEDS: PROSCAR 5 MG PO (09:37)
[2025-05-31] MEDS: CLARITIN 10 MG PO (09:38)
[2025-05-31] MEDS: ASPIR LOW (ENTERIC COATED) 81 MG PO (09:38)
[2025-05-31] MEDS: DECADRON 6 MG PO (09:38)
[2025-05-31] MEDS: COREG 25 MG PO (09:39)
[2025-05-31] MEDS: PROTONIX 40 MG PO (09:39)
[2025-05-31] MEDS: TESSALON PERLES 200 MG PO ×2 (09:39→15:59)
[2025-05-31] MEDS: VITAMIN D3 (cholecalciferol) 50 MCG PO (09:39)
[2025-05-31] MEDS: FLOMAX 0.4 MG PO (09:39)
[2025-05-31 10:00] VITALS: O2SAT 97; O2SAT 98
--- NOTE | 2025-05-31 12:44 | W.PN.HOSP.TC ---
Today's Communication/Plan
-
po decadron
off oxygen
anti-cough meds
Assessment / Plan
Assessment / Plan
General: Sitting in chair, no acute distress
HEENT: Neck is supple trachea is midline
Respiratory: Decreased breath sounds
Cardiac: S1/S2, Regular Rhythm and Murmur (III/ TYSON)
GI: Soft, Non Tender, Non Distended and Normal Bowel Sounds
Musculoskeletal: No Clubbing, No Cyanosis and No Edema
Neuro: AO x 3
A/P: Patient is an 89y M with PMH significant for hypertension and CHF who presents to ED complaining of weakness and unsteady gait with recent diagnosis of COVID.
COVID-19 Infection
Acute Hypoxemic Respiratory Insufficiency secondary to the above
- Positive known sick contacts. Cough has improved.
- Begin daily dexamethasone for now.
- Follow proper precautions.
- Follow for clinical improvement. Anticough meds
- Chest x-ray noted. Incentive spirometry added.
Ambulatory Dysfunction
- Likely exacerbated by acute illness, but ? underlying Parkinsonism as previously suspected.
- Patient not interested in repeat trial of Sinemet.
- Treat acute process as noted above.
- PT eval / supportive care.
- Monitor for any improvement.
Benign Hypertension
- Stable. Continue carvedilol with holding parameters.
- Restart lisinopril
- Adjust regimen as needed.
Chronic HFrEF
- Stable. Patient does not appear volume overloaded - likely somewhat volume depleted.
- Restart Lasix
- Follow I/Os, daily weights, etc.
BPH
- Stable. Continue finasteride and Flomax
- Bladder scan protocol.
Hodgkin's Lymphoma in remission
- On monthly IVIG infusions.
DVT Prophylaxis: Lovenox
Code Status: DNR
PT Home health
More than 30 minutes spent in discharge including
Final examination of the patient
Summarizing hospital stay
Instructions for continuing care to all relevant caregivers
Preparation of discharge records, prescriptions, and referral forms
Total time spent (in minutes): 52
Anticipated Discharge: Today
Subjective/Interval History
-
Date of Service: May 31, 2025
States he is feeling better
Cough is improved
Appetite improved
Had bowel movement yesterday
Remains afebrile
Objective Data
-
Labs:
Laboratory Results
05/31/25
06:22
WBC 5.4
Hgb 11.4 L
Hct 32.6 L
Plt Count 123 L
Sodium 140
Potassium 4.1
Chloride 111 H
Carbon Dioxide 20 L
BUN 22 H
Creatinine 1.0
Glucose 152 H
Calcium 8.6
Vital Signs:
Vital Signs
Temp Pulse Resp BP Pulse Ox
97.4 F 72 20 136/74 98
05/31/25 07:00 05/31/25 09:39 05/31/25 07:00 05/31/25 09:39 05/31/25 10:00
I&O
05/30/25 05/31/25 06/01/25
06:59 06:59 06:59
Intake Total 1020 / 1020
Output Total 1325 / 1325
Balance -305 / -305
--- NOTE | 2025-05-31 12:47 | W.DCSUMMARY ---
Discharge Summary
Discharge Data
Date of Admission: 05/30/25
Date of Discharge: 05/31/25
-
Pending Results: No
Hospital Course
89-year-old male past medical history of hypertension, chronic HFrEF, BPH, Hodgkin lymphoma who is presenting from home with weakness. Patient was found to be have COVID infection. Patient spouse at home with COVID. Patient was found to be
hypoxic on admission. Patient was started on intravenous fluids. Patient was started on steroids. Patient improved with IV fluid resuscitation. Patient was able to be weaned off oxygen. Patient was stable on room air. Patient with cough which
improved with medication. Incentive spirometry added. Patient was eval by physical therapy recommended for home health.
Discharge Plan
-
Patient Disposition: Home with Home Care
Discharge Diagnosis/Procedures: Acute COVID-19 infection
Acute hypoxic respiratory insufficiency
Condition: Fair
Diet: 2 Gram Sodium and Restrict fluids to 48 oz
Activity: With assistance and As tolerated
Driving Restrictions: Not until seen by your Dr
Referrals:
UNKNOWN - PT DOES,NOT KNOW [Family Provider, Internal Medicine] - in less than 1 week
Prescriptions:
New
benzonatate 100 mg Capsule
200 mg PO TID PRN (Reason: Cough) 10 Days Qty: 30 0RF
dexamethasone 6 mg tablet
6 mg PO Q24H Qty: 7 0RF
Continued
aspirin 81 MG tablet,delayed release (DR/EC)
81 mg PO DAILY
loratadine 10 MG tablet
10 mg PO DAILY
fluticasone propionate 1 SPRAY spray,suspension
2 spray intranasal DAILY
furosemide 40 mg tablet
40 mg PO DAILY
latanoprost 0.005 % drops
1 drp BOTH EYES HS
atorvastatin 40 mg tablet
40 mg PO HS
acetaminophen 500 mg Tablet
1,000 mg PO NOON
omeprazole 20 mg capsule,delayed release(DR/EC)
20 mg PO DAILY
finasteride 5 mg tablet
5 mg PO DAILY
cholecalciferol (vitamin D3) [Vitamin D3] 50 mcg (2,000 unit) Tablet
50 mcg PO DAILY
carvedilol 25 mg Tablet
25 mg PO BID Qty: 0 0RF
lisinopril 20 mg Tablet
20 mg PO BID Qty: 0 0RF
tamsulosin 0.4 MG capsule
0.4 mg PO DAILY Qty: 10 0RF
omega 2-kau-nvs-fish oil [Fish Oil] 1,200 (144-216) mg Capsule
3 cap PO DAILY Qty: 0 0RF
Glucosamine Chondroitin 550-30-1 mg Capsule
1 cap PO BID Qty: 0 0RF
Balance Of Nature Fruits
1 cap PO TID Qty: 0 0RF
Balance Of Nature Vegetables
1 cap PO TID Qty: 0 0RF
Discontinued
ibuprofen 200 mg Tablet
400 mg PO BID Qty: 0 0RF
Discharge Orders:
Discharge Patient (As Directed); Ordered 05/31/25
Ordered By: Dakota Dia
Discharge Date and Time
Discharge Date/Time: 05/31/25 17:23
Print Language: COMORAN
[2025-05-31] MEDS: TYLENOL 1000 MG PO (12:49)
--- NOTE | 2025-05-31 13:02 | CM ---
Addendum entered by Rosita Cano 05/31/25 14:54:
Discharge postponed. Patient transferring to IMU.
Original Note:
Patient has been medically cleared for discharge to home with [facility], PT/OT services. Patient arranged for transport home. IMM completed.
[2025-05-31 14:55] VITALS: BP 163/76; PULSE 57; O2SAT 98
[2025-05-31 15:00] VITALS: BP 150/70
--- NOTE | 2025-05-31 15:08 | CM ---
Patient has been medically cleared for discharge to home with [facility] RN, PT/OT services. Patient arranged for transport home. IMM completed.
== END 2025-05-31 17:23 | disposition home health service (06) | DRG 178 ==
LOC: 2 NORTH 04:04
PROVIDERS: ADMITTING PHYSICIAN Hospitalist; ATTENDING PHYSICIAN Hospitalist; EMERGENCY PHYSICIAN Student in an Organized Health Care Education/Training Program
DX: U07.1 COVID-19 (principal); C85.9A Non-Hodgkin lymphoma, unspecified, in remission; I50.22 Chronic systolic (congestive) heart failure; R09.02 Hypoxemia; I11.0 Hypertensive heart disease with heart failure; N40.0 Benign prostatic hyperplasia without lower urinary tract symptoms; Z79.82 Long term (current) use of aspirin; Z66 Do not resuscitate; Z79.899 Other long term (current) drug therapy; R54 Age-related physical debility; E78.00 Pure hypercholesterolemia, unspecified; G20.A1 Parkinson's disease without dyskinesia, without mention of fluctuations; R29.6 Repeated falls; R06.89 Other abnormalities of breathing
CPT/HCPCS: 71046; 80048; 80053; 83605; 84439; 84443; 85025; 85027; 87811; 93005; 96360; 97116; 97163; 97530; 99285